=== PATIENT | male | born 1940 | race Caucasian/White ===

== ENCOUNTER → 2018-02-23 | Outpatient (CLI) | payer MEDICARE, OTHER ==
[~2018-02-23] MED LIST: ASPI-496 PO; ATOR20TA37 PO; CHOL200074 PO; CYAN50008 PO; EZET10TA18 PO; HYDROCHLOROTH12.5 MG PO; LISI-167 PO; MELO7.5T31 PO; MOME17SP NAS; OMEG1CAP34 PO; REGADENOSON 0.4 MG/5 ML SYRINGE ONE; TEST100V2 INJ; UBID200C7 PO; ZINC50TA2 PO
== END | disposition home or self-care (01) ==
LOC: CFH 11:54
PROVIDERS: ATTEND Internal Medicine Cardiovascular Disease
DX: I25.10 Atherosclerotic heart disease of native coronary artery without angina pectoris (principal)
CPT/HCPCS: 78452; 93017; A9502; J2785